=== PATIENT | male | born 1980 | race African-American/Black ===

== ENCOUNTER 2016-12-09 23:23 | Emergency (ER) | payer BC ==
[~2016-12-09] VITALS: Ht 177.8 cm; Wt 136.0 kg
[~2016-12-09 23:23] MED LIST: ADVIL200 MG OR; AMOXICILLIN500 MG OR; AZITHROMYCIN250 MG PO; CLEOCIN150 MG PO; CLEOCIN300 MG PO; CLINDAMYCIN HC150 MG PO; CLINDAMYCIN150 MG PO; CLINDAMYCIN300 M1 PO; COZAAR25 MG PO; DARVOCET N-100100 - OR; FLEXERIL5 MG PO; HYDROCHLORO25 MG/TAB PO; HYDROCHLOROT12.5 MG PO; HYDROCHLOROT25 MG PO; HYDROCO/APAP1 TA9; HYZAAR1 TA1 PO; LOPRESSOR50 M1 PO; LORTAB 5 OR; LORTAB 5/3255 MG PO; LOSARTAN POTASS50 MG PO; METFORMIN500 MG PO; METOPROL TAR25 MG PO; MUCINEX600 MG PO; NAPROSYN500 MG PO; NEXIUM 24HR20 MG PO; NEXIUM20 M1 PO; NEXIUM40 M1 PO; NO MEDS; PANTOPRAZOLE SO40 MG PO; PENICILLN VK500 MG OR; PERCOCET 5/325M1 TAB OR; PERCOCET 5/325M1 TAB PO; PREVACID30 M2 PO; PRILOSEC20 MG OR; ROBITUSSIN AC10 ML PO; ULTRAM50 M1 PO; ULTRAM50 MG PO; XANAX1 MG PO; ZITHROMAX250 MG OR; ZITHROMAX250 MG PO; ZOFRAN ODT4 MG PO; ZPAK PO
[2016-12-09] MEDS ORDERED: PRAVASTATIN SOD20 MG PO (23:29)
[2016-12-09] MEDS ORDERED: PRILOSEC20 MG PO (23:56)
[2016-12-10 00:25] VITALS: BP 141/92
== END 2016-12-10 00:32 | disposition home or self-care (01) | DRG 392 ==
LOC: ED 23:23
DX: K21.9 Gastro-esophageal reflux disease without esophagitis (principal); R10.13 Epigastric pain

== ENCOUNTER 2017-02-19 19:56 | Emergency (ER) | payer BC ==
[~2017-02-19] VITALS: Ht 177.8 cm; Wt 138.8 kg
[~2017-02-19 19:56] MED LIST changes: +PRAVASTATIN SOD20 MG PO; +PRILOSEC20 MG PO
[2017-02-19] MEDS ORDERED: CLINDAMYCIN300 M1 PO (20:32)
[2017-02-19 20:45] VITALS: BP 136/90
== END 2017-02-19 20:45 | disposition home or self-care (01) | DRG 159 ==
LOC: ED 19:56
DX: K05.10 Chronic gingivitis, plaque induced (principal); I10 Essential (primary) hypertension; K02.9 Dental caries, unspecified; K21.9 Gastro-esophageal reflux disease without esophagitis; K44.9 Diaphragmatic hernia without obstruction or gangrene; E78.00 Pure hypercholesterolemia, unspecified

== ENCOUNTER 2017-03-28 23:14 | Emergency (ER) | payer BC ==
[~2017-03-28] VITALS: Ht 177.8 cm; Wt 138.4 kg
[2017-03-29] MEDS ORDERED: ZITHROMAX250 MG PO (00:53)
[2017-03-29 01:10] VITALS: BP 130/93
== END 2017-03-29 01:11 | disposition home or self-care (01) | DRG 156 ==
LOC: ED 23:14
DX: S09.22XA Traumatic rupture of left ear drum, initial encounter (principal); I10 Essential (primary) hypertension; K21.9 Gastro-esophageal reflux disease without esophagitis; K44.9 Diaphragmatic hernia without obstruction or gangrene; E78.00 Pure hypercholesterolemia, unspecified; X58.XXXA Exposure to other specified factors, initial encounter

== ENCOUNTER 2017-06-05 22:47 | Emergency (ER) | payer BC ==
[~2017-06-05] VITALS: Ht 177.8 cm; Wt 139.4 kg
[2017-06-06 00:15] VITALS: BP 135/67
== END 2017-06-06 00:15 | disposition home or self-care (01) | DRG 392 ==
LOC: ED 22:47
DX: R10.13 Epigastric pain (principal); H61.22 Impacted cerumen, left ear; K21.9 Gastro-esophageal reflux disease without esophagitis

== ENCOUNTER 2017-06-23 19:22 | Emergency (ER) | payer BC ==
[~2017-06-23] VITALS: Ht 177.8 cm; Wt 75.9 kg
[2017-06-23] MEDS ORDERED: LOPRESSOR 550 MG/TAB PO (19:47)
[2017-06-23 20:00] VITALS: BP 151/79
== END 2017-06-23 20:00 | disposition home or self-care (01) | DRG 639 ==
LOC: ED 19:22
DX: E11.9 Type 2 diabetes mellitus without complications (principal); Z79.84 Long term (current) use of oral hypoglycemic drugs

== ENCOUNTER 2017-09-12 12:31 | Emergency (ER) | payer BC ==
[~2017-09-12] VITALS: Ht 177.8 cm; Wt 150.0 kg
[~2017-09-12 12:31] MED LIST changes: +LOPRESSOR 550 MG/TAB PO
[2017-09-12 12:56] LABS: HEMATOCRIT 42.4 % (39.0-50.0); HEMOGLOBIN 13.5 g/dl (14.0-18.0); IMMATURE GRANULOCYTES 0.3 % (0.0-1.0); MEAN CELL VOLUME 88.1 fL CALC (80.0-100.0); MEAN CORPUSCULAR HGB 28.1 pG CALC (26.0-32.0); MEAN CORPUSCULAR HGB CONC 31.8 g/L CALC (32.0-36.0); NEUT# 3.54 thou/uL (1.82-7.42); RED BLOOD COUNT 4.81 mill/uL (4.70-6.10); RED CELL DISTRI WIDTH 13.1 % (11.5-15.5)
[2017-09-12 13:11] LABS: ALBUMIN 4.2 g/dL (3.2-5.0); ALKALINE PHOSPHATASE 73 u/l (38-126); ANION GAP 16 (6-22 (CALC)); BILIRUBIN, TOTAL 0.7 mg/dL (0.0-1.4); BUN 12 mg/dL (9-20); BUN/CREATININE RATIO 15 (12-20 (CALC)); CARBON DIOXIDE 29 mmol/l (22-30); CHLORIDE 100 mmol/l (95-108); CREATININE 0.8 mg/dL (0.7-1.3); GFR > 60 ML/MIN (>=60 (CALC)); GFR FOR AFR.AMER. > 60 ML/MIN (>=60 (CALC)); POTASSIUM 3.3 mmol/l (3.5-5.1); SGOT/AST 30 u/l (17-59); SGPT/ALT 35 u/l (21-72); SODIUM 141 mmol/l (137-146); TOTAL PROTEIN 8.3 g/dL (6.3-8.2)
[2017-09-12 15:59] VITALS: BP 120/77
[2017-09-12] MEDS ORDERED: POTASSIUM CHLO20 ME1 PO (16:25)
== END 2017-09-12 16:50 | disposition home or self-care (01) | DRG 313 ==
LOC: ED 12:31
PROVIDERS: Family Medicine
DX: R07.89 Other chest pain (principal); E11.9 Type 2 diabetes mellitus without complications; I10 Essential (primary) hypertension; Z79.84 Long term (current) use of oral hypoglycemic drugs

== ENCOUNTER 2017-11-03 23:44 | Emergency (ER) | payer BC ==
[~2017-11-03] VITALS: Ht 177.8 cm; Wt 146.0 kg
[~2017-11-03 23:44] MED LIST changes: +POTASSIUM CHLO20 ME1 PO
[2017-11-04] MEDS ORDERED: NEXIUM40 M1 PO (00:07)
[2017-11-04 00:19] VITALS: BP 125/91
== END 2017-11-04 00:24 | disposition home or self-care (01) | DRG 392 ==
LOC: ED 23:44
DX: K21.9 Gastro-esophageal reflux disease without esophagitis (principal); R10.13 Epigastric pain

== ENCOUNTER 2018-02-24 08:21 | Emergency (ER) | payer BC ==
[~2018-02-24] VITALS: Ht 177.8 cm; Wt 142.2 kg
[2018-02-24 09:35] VITALS: BP 137/88
== END 2018-02-24 09:30 | disposition home or self-care (01) | DRG 392 ==
LOC: ED 08:21
DX: R10.13 Epigastric pain (principal); K21.9 Gastro-esophageal reflux disease without esophagitis; I10 Essential (primary) hypertension; E11.9 Type 2 diabetes mellitus without complications

== ENCOUNTER 2018-04-03 23:58 | Emergency (ER) | payer BC ==
[~2018-04-03] VITALS: Ht 177.8 cm; Wt 141.0 kg
[2018-04-04] MEDS ORDERED: PROTONIX40 MG PO (00:26)
[2018-04-04] MEDS ORDERED: IMODIUM2 MG PO (00:26)
[2018-04-04 00:51] VITALS: BP 124/77
== END 2018-04-04 00:52 | disposition home or self-care (01) | DRG 392 ==
LOC: ED 23:58
DX: R19.7 Diarrhea, unspecified (principal); K21.9 Gastro-esophageal reflux disease without esophagitis; E11.9 Type 2 diabetes mellitus without complications; Z79.84 Long term (current) use of oral hypoglycemic drugs

== ENCOUNTER 2018-05-11 23:55 | Emergency (ER) | payer BC ==
[~2018-05-11] VITALS: Ht 177.8 cm; Wt 140.0 kg
[~2018-05-11 23:55] MED LIST changes: +IMODIUM2 MG PO; +PROTONIX40 MG PO
[2018-05-12] MEDS ORDERED: ZPAK PO (01:27)
[2018-05-12 01:30] VITALS: BP 123/77
== END 2018-05-12 01:35 | disposition home or self-care (01) | DRG 153 ==
LOC: ED 23:55
DX: J02.0 Streptococcal pharyngitis (principal); J06.9 Acute upper respiratory infection, unspecified; R09.81 Nasal congestion; R09.89 Other specified symptoms and signs involving the circulatory and respiratory systems; R05 Cough; J34.89 Other specified disorders of nose and nasal sinuses

== ENCOUNTER 2019-01-14 22:08 | Emergency (ER) | payer BC ==
[~2019-01-14] VITALS: Ht 152.4 cm; Wt 120.0 kg
[2019-01-14 22:35] VITALS: BP 121/80
[2019-01-14] MEDS ORDERED: NEXIUM40 M1 PO (22:47)
== END 2019-01-14 22:58 | disposition home or self-care (01) | DRG 392 ==
LOC: ED 22:08
DX: K21.9 Gastro-esophageal reflux disease without esophagitis (principal); E11.9 Type 2 diabetes mellitus without complications; I10 Essential (primary) hypertension; Z79.84 Long term (current) use of oral hypoglycemic drugs

== ENCOUNTER 2019-03-18 19:43 | Emergency (ER) | payer BC ==
[~2019-03-18] VITALS: Ht 177.8 cm; Wt 140.0 kg
[2019-03-18] MEDS ORDERED: [UNRECOGNIZED DRUG - OTHER] PO (21:14)
[2019-03-18 21:19] VITALS: BP 114/68
== END 2019-03-18 21:19 | disposition home or self-care (01) | DRG 866 ==
LOC: ED 19:43
DX: B34.9 Viral infection, unspecified (principal); E11.9 Type 2 diabetes mellitus without complications; I10 Essential (primary) hypertension; Z79.84 Long term (current) use of oral hypoglycemic drugs

== ENCOUNTER 2019-07-26 | Emergency (ER) | payer OTHER ==
[~2019-07-26] MED LIST changes: +[UNRECOGNIZED DRUG - OTHER] PO
[2019-07-26 00:56] LABS: HEMATOCRIT 42.7 % (39.0-50.0); HEMOGLOBIN 13.4 g/dl (14.0-18.0); IMMATURE GRANULOCYTES 0.4 % (0.0-5.0); MEAN CELL VOLUME 89.3 fL CALC (80.0-100.0); MEAN CORPUSCULAR HGB CONC 31.4 g/L CALC (32.0-36.0); NEUT# 6.71 thou/uL (1.82-7.42); RED BLOOD COUNT 4.78 mill/uL (4.70-6.10); RED CELL DISTRI WIDTH 13.6 % (11.5-15.5)
[2019-07-26] MEDS ORDERED: BROMFED D1 PO ×2 (01:34)
== END 2019-07-26 02:03 | disposition home or self-care (01) | DRG 866 ==
PROVIDERS: Family Medicine
DX: B34.9 Viral infection, unspecified (principal); E11.9 Type 2 diabetes mellitus without complications; I10 Essential (primary) hypertension; Z79.84 Long term (current) use of oral hypoglycemic drugs

== ENCOUNTER 2019-12-02 10:47 | Emergency (ER) | payer OTHER ==
[~2019-12-02] VITALS: Ht 177.8 cm; Wt 136.0 kg
[~2019-12-02 10:47] MED LIST changes: +BROMFED D1 PO
[2019-12-02] MEDS ORDERED: CLEOCIN300 MG PO (11:15)
[2019-12-02 11:28] VITALS: BP 142/98
== END 2019-12-02 11:32 | disposition home or self-care (01) | DRG 158 ==
LOC: ED 10:47
DX: K04.7 Periapical abscess without sinus (principal); M84.68XA Pathological fracture in other disease, other site, initial encounter for fracture; K02.9 Dental caries, unspecified; E11.9 Type 2 diabetes mellitus without complications; I10 Essential (primary) hypertension; Z79.84 Long term (current) use of oral hypoglycemic drugs

== ENCOUNTER 2020-02-13 23:40 | Emergency (ER) | payer OTHER ==
[~2020-02-13] VITALS: Ht 177.8 cm; Wt 136.3 kg
[2020-02-14] MEDS ORDERED: PROTONIX40 M2 PO (00:40)
[2020-02-14 01:00] VITALS: BP 141/87
== END 2020-02-14 01:00 | disposition home or self-care (01) | DRG 392 ==
LOC: ED 23:40
DX: K21.9 Gastro-esophageal reflux disease without esophagitis (principal); K44.9 Diaphragmatic hernia without obstruction or gangrene; E11.9 Type 2 diabetes mellitus without complications; I10 Essential (primary) hypertension; Z79.84 Long term (current) use of oral hypoglycemic drugs

== ENCOUNTER 2020-08-26 | Emergency (ER) | payer OTHER ==
[~2020-08-26] MED LIST changes: +PROTONIX40 M2 PO
== END 2020-08-26 09:55 | disposition home or self-care (01) | DRG 305 ==
DX: I10 Essential (primary) hypertension (principal); R53.83 Other fatigue; E11.9 Type 2 diabetes mellitus without complications; K21.9 Gastro-esophageal reflux disease without esophagitis; Z79.84 Long term (current) use of oral hypoglycemic drugs

== ENCOUNTER 2020-11-28 05:43 | Emergency (ER) | payer OTHER ==
[~2020-11-28] VITALS: Ht 177.8 cm; Wt 139.0 kg
[2020-11-28] MEDS ORDERED: NEXIUM40 M1 PO (06:02)
[2020-11-28 06:32] VITALS: BP 136/86
== END 2020-11-28 06:40 | disposition home or self-care (01) | DRG 392 ==
LOC: ED 05:43
DX: K21.9 Gastro-esophageal reflux disease without esophagitis (principal); I10 Essential (primary) hypertension; E11.9 Type 2 diabetes mellitus without complications; T47.1X6A Underdosing of other antacids and anti-gastric-secretion drugs, initial encounter; Z91.128 Patient's intentional underdosing of medication regimen for other reason; Z79.84 Long term (current) use of oral hypoglycemic drugs

== ENCOUNTER 2021-06-11 10:14 | Emergency (ER) | payer OTHER ==
[~2021-06-11] VITALS: Ht 177.8 cm; Wt 142.0 kg
[2021-06-11] MEDS ORDERED: LORTAB 1010 MG PO (12:12)
[2021-06-11] MEDS ORDERED: CLEOCIN300 MG PO (12:12)
[2021-06-11 13:07] VITALS: BP 138/89
== END 2021-06-11 13:07 | disposition home or self-care (01) | DRG 158 ==
LOC: ED 10:14
DX: K05.10 Chronic gingivitis, plaque induced (principal); K02.9 Dental caries, unspecified; M84.68XA Pathological fracture in other disease, other site, initial encounter for fracture; I10 Essential (primary) hypertension; E11.9 Type 2 diabetes mellitus without complications; K21.9 Gastro-esophageal reflux disease without esophagitis; Z86.16 Personal history of COVID-19; Z79.84 Long term (current) use of oral hypoglycemic drugs

== ENCOUNTER 2021-10-26 09:31 | Emergency (ER) | payer OTHER ==
[2021-10-26] VITALS (7 sets, daily range): BP systolic 136–156; BP diastolic 95–112
[~2021-10-26] VITALS: Ht 177.8 cm; Wt 143.0 kg
[~2021-10-26 09:31] MED LIST changes: +LORTAB 1010 MG PO
== END 2021-10-26 12:19 | disposition home or self-care (01) | DRG 556 ==
LOC: ED 09:31
DX: M79.671 Pain in right foot (principal); I10 Essential (primary) hypertension; E11.9 Type 2 diabetes mellitus without complications; K21.9 Gastro-esophageal reflux disease without esophagitis; Z86.16 Personal history of COVID-19; Z79.84 Long term (current) use of oral hypoglycemic drugs

== ENCOUNTER 2022-07-26 12:33 | Emergency (ER) | payer BC ==
[~2022-07-26] VITALS: Ht 177.8 cm; Wt 145.0 kg
[2022-07-26 14:29] VITALS: BP 140/87
[2022-07-26 14:30] VITALS: BP 143/95
[2022-07-26 14:45] VITALS: BP 146/101
[2022-07-26 15:01] VITALS: BP 130/93
[2022-07-26] MEDS ORDERED: OFLOXACIN0.3 % PO (15:29)
[2022-07-26 15:34] VITALS: BP 130/93
== END 2022-07-26 15:40 | disposition home or self-care (01) | DRG 125 ==
LOC: ED 12:33
PROC: 08C1XZZ Extirpation of Matter from Left Eye, External Approach (ICD-10-PCS; principal; 2022-07-26)
DX: T15.92XA Foreign body on external eye, part unspecified, left eye, initial encounter (principal); E66.01 Morbid (severe) obesity due to excess calories; E11.9 Type 2 diabetes mellitus without complications; I10 Essential (primary) hypertension; K21.9 Gastro-esophageal reflux disease without esophagitis; X58.XXXA Exposure to other specified factors, initial encounter; Z86.16 Personal history of COVID-19

== ENCOUNTER 2022-08-28 16:48 | Emergency (ER) | payer BC ==
[~2022-08-28] VITALS: Ht 177.8 cm; Wt 136.6 kg
[~2022-08-28 16:48] MED LIST changes: +OFLOXACIN0.3 % PO
[2022-08-28 17:38] VITALS: BP 140/94
[2022-08-28 18:01] VITALS: BP 126/95
[2022-08-28] MEDS ORDERED: ULTRAM50 MG PO (19:10)
[2022-08-28] MEDS ORDERED: BACTRIM DS1 TAB PO (19:10)
[2022-08-28 19:16] VITALS: BP 126/95
== END 2022-08-28 19:24 | disposition home or self-care (01) | DRG 607 ==
LOC: ED 16:48
PROC: 0HBRXZZ Excision of Toe Nail, External Approach (ICD-10-PCS; principal; 2022-08-28)
DX: L60.0 Ingrowing nail (principal); E11.9 Type 2 diabetes mellitus without complications; I10 Essential (primary) hypertension; K21.9 Gastro-esophageal reflux disease without esophagitis; Z86.16 Personal history of COVID-19; Z79.84 Long term (current) use of oral hypoglycemic drugs

== ENCOUNTER 2022-09-01 07:49 | Emergency (ER) | payer BC ==
[~2022-09-01] VITALS: Ht 177.8 cm; Wt 136.0 kg
[~2022-09-01 07:49] MED LIST changes: +BACTRIM DS1 TAB PO
[2022-09-01 07:57] VITALS: BP 148/94
[2022-09-01 08:01] VITALS: BP 134/98
[2022-09-01 08:16] VITALS: BP 120/88
== END 2022-09-01 08:26 | disposition home or self-care (01) | DRG 607 ==
LOC: ED 07:49
DX: L60.0 Ingrowing nail (principal); E11.9 Type 2 diabetes mellitus without complications; I10 Essential (primary) hypertension; K21.9 Gastro-esophageal reflux disease without esophagitis; Z86.16 Personal history of COVID-19